=== PATIENT | female | born 1935 | race African-American/Black ===

== ENCOUNTER 2017-09-07 11:16 | Inpatient (IN) | payer MEDICARE, MEDICAID ==
[~2017-09-07] VITALS: Ht 165.1 cm; Wt 83.0 kg
[2017-09-07] MEDS ORDERED: SODIUM CHLORIDE 0.9% 1,000 ML IV ONE (11:47)
[2017-09-07] MEDS ORDERED: NALOXONE HCL 1 MG/ML 2ML VIAL IV ONE (12:00)
[2017-09-07 12:17] LABS: BASOPHILS % 1.8 % (0.0-2.0); EOSINOPHILS % 7.7 % (0.0-5.0); HEMATOCRIT. 37.3 % (36.0-48.0); HEMOGLOBIN. 12.2 g/dL (12.0-16.0); LYMPHOCYTES % 24.7 % (20.0-50.0); MEAN CORPUSCULAR HEMOGLOBIN 29.8 pg (28.0-32.0); MEAN CORPUSCULAR VOLUME 91.3 fL (81.0-99.0); MEAN PLATELET VOLUME 8.2 fl (7.4-10.4); MONOCYTES % 9.7 % (2.0-8.0); NEUTROPHILS % 56.1 % (40.0-76.0); PLATELET 368 x1000/uL (130-400); RED BLOOD CELL COUNT 4.09 mill/uL (4.2-5.4); RED CELL DISTRIBUTION WIDTH 15.1 % (11.6-14.6)
[2017-09-07 12:20] LABS: CHLORIDE 104 mEq/L (98-107)
[2017-09-07 12:21] LABS: INR 1.1
[2017-09-07 12:24] LABS: ETHANOL BLOOD < 10 mg/dL
[2017-09-07 12:28] LABS: CREATINE KINASE 107 IU/L (26-192)
[2017-09-07 12:38] LABS: CARBAMAZEPINE < 0.5 ug/mL (4-12); PHENOBARBITAL < 2.1 ug/mL (15.0-40.0)
[2017-09-07 17:20] VITALS: BP 132/54
[2017-09-07] MEDS ORDERED: CETI-193 PO (20:23)
[2017-09-07] MEDS ORDERED: ASPI-1159 PO (20:23)
[2017-09-07] MEDS ORDERED: DIAZ5TAB4 PO (20:23)
[2017-09-07] MEDS ORDERED: AMLO10TA80 PO (20:23)
[2017-09-07] MEDS ORDERED: NAPR500T7 PO (20:23)
[2017-09-07] MEDS ORDERED: OXYC-523 PO ×2 (20:23)
[2017-09-07] MEDS ORDERED: CANA100T PO (20:23)
[2017-09-07] MEDS ORDERED: LOSA100T14 PO (20:23)
[2017-09-07] MEDS ORDERED: TRAZ-129 PO (20:23)
[2017-09-07] MEDS ORDERED: DIAZ2TAB3 PO (20:23)
[2017-09-07] MEDS ORDERED: DULO60CA63 PO (20:23)
[2017-09-07] MEDS ORDERED: PREG50CA PO (20:23)
[2017-09-07] MEDS ORDERED: ATOR20TA65 PO (20:23)
[2017-09-07] MEDS ORDERED: SITA100T11 PO (20:23)
[2017-09-07] MEDS ORDERED: FAMO40TA7 PO (20:23)
[2017-09-07] MEDS ORDERED: OXYB5TAB PO (20:23)
[2017-09-07] MEDS ORDERED: GINK60CA PO (20:23)
[2017-09-07] MEDS ORDERED: METO25TA6 PO (20:23)
[2017-09-07 20:52] VITALS: BP 109/45
[2017-09-07 21:29] VITALS: BP 109/45
[2017-09-07] MEDS ORDERED: MEDICATION NOT ON FORMULARY EA (Trazodone Hcl 50 MG) PO SCH (22:45)
[2017-09-07] MEDS ORDERED: DEXTROSE 50% WATER 50ML SYRINGE IV PRN (22:45)
[2017-09-07] MEDS ORDERED: LORAZEPAM 0.5MG TABLET PO PRN (23:00)
[2017-09-07] MEDS ORDERED: TRAMADOL 50MG TABLET PO PRN (23:00)
[2017-09-08] VITALS: BP 112/51
[2017-09-08] MEDS: SODIUM CHLORIDE 0.9% 1,000 ML IV SCH ×2 (00:08→12:26)
[2017-09-08] MEDS: TRAZODONE HCL 50MG TABLET PO SCH ×2 (00:08→21:05)
[2017-09-08 04:00] VITALS: BP 116/72
[2017-09-08 06:53] LABS: CLARITY URINE CLEAR (CLEAR); COLOR URINE YELLOW (YELLOW); KETONES URINE NEGATIVE (NEGATIVE); LEUKOCYTE ESTERASE URINE NEGATIVE (NEGATIVE); NITRITE URINE NEGATIVE (NEGATIVE); OCCULT BLOOD URINE NEGATIVE (NEGATIVE); PROTEIN URINE NEGATIVE (NEGATIVE); SPECIFIC GRAVITY URINE 1.017 (1.005-1.030); UROBILINOGEN URINE 0.2 E.U./dL (0.2-1.0)
[2017-09-08 07:13] LABS: *AMPHETAMINES SCREEN URINE NEGATIVE (NEGATIVE); CANNABINOID URINE SCREEN NEGATIVE (NEGATIVE); METHADONE URINE SCREEN NEGATIVE (NEGATIVE); OPIATES URINE SCREEN NEGATIVE (NEGATIVE); PHENCYCLIDINE URINE SCREEN NEGATIVE (NEGATIVE)
[2017-09-08 07:14] LABS: *BARBITURATES SCREEN URINE NEGATIVE (NEGATIVE); *BENZODIAZEPINES SCREEN URINE PRESUMTIVE POSITIVE (NEGATIVE); *COCAINE SCREEN URINE NEGATIVE (NEGATIVE)
[2017-09-08] MEDS: BLOOD SUGAR DIAGNOSTIC STRIP TEST SCH ×4 (07:17→21:00)
[2017-09-08 07:41] LABS: BASOPHILS % 1.5 % (0.0-2.0); HEMATOCRIT. 34.6 % (36.0-48.0); HEMOGLOBIN. 11.5 g/dL (12.0-16.0); LYMPHOCYTES % 37.1 % (20.0-50.0); MEAN CORPUSCULAR HEMOGLOBIN 30.4 pg (28.0-32.0); MEAN CORPUSCULAR VOLUME 91.6 fL (81.0-99.0); MEAN PLATELET VOLUME 8.5 fl (7.4-10.4); MONOCYTES % 10.9 % (2.0-8.0); NEUTROPHILS % 41.5 % (40.0-76.0); PLATELET 324 x1000/uL (130-400); RED BLOOD CELL COUNT 3.77 mill/uL (4.2-5.4); RED CELL DISTRIBUTION WIDTH 15.1 % (11.6-14.6)
[2017-09-08] MEDS: INSULIN LISPRO 100 UNITS/ML SUBCUT SCH ×4 (07:50→21:00)
[2017-09-08 08:55] VITALS: BP 127/89
[2017-09-08] MEDS ORDERED: PREGABALIN 50 MG PO SCH (09:00)
[2017-09-08] MEDS ORDERED: OXYBUTYNIN CHLORIDE 5 MG PO SCH (09:00)
[2017-09-08] MEDS ORDERED: MEDICATION NOT ON FORMULARY EA (Metoprolol Tartrate 25 MG) PO SCH (09:00)
[2017-09-08] MEDS: METOPROLOL TARTRATE 25MG TABLET PO SCH ×2 (09:00→21:00)
[2017-09-08] MEDS ORDERED: FAMOTIDINE 40 MG PO SCH (09:00)
[2017-09-08] MEDS: AMLODIPINE 5MG TABLET PO SCH (09:00)
[2017-09-08] MEDS ORDERED: MEDICATION NOT ON FORMULARY EA (Sitagliptin Phosphate (Januvia) 100 MG) PO SCH (09:00)
[2017-09-08] MEDS: ASPIRIN 81MG TABLET PO SCH (09:22)
[2017-09-08] MEDS: LINAGLIPTIN 5MG TABLET PO SCH (09:22)
[2017-09-08] MEDS: DULOXETINE HCL 60MG DR CAPSULE PO SCH (09:22)
[2017-09-08] MEDS: FAMOTIDINE 20MG TABLET PO SCH (09:22)
[2017-09-08] MEDS: PREGABALIN 50 MG CAPSULE PO SCH ×2 (09:23→18:02)
[2017-09-08] MEDS: OXYBUTYNIN CHLORIDE 5MG TABLET PO SCH (09:23)
[2017-09-08] MEDS: ENOXAPARIN 30MG/0.3ML SYR SUBCUT SCH (09:24)
[2017-09-08 10:15] LABS: CHLORIDE 109 mEq/L (98-107)
[2017-09-08 12:55] VITALS: BP 110/68
[2017-09-08 16:24] VITALS: BP 110/46
[2017-09-08] MEDS: DOCUSATE SODIUM 100MG CAPSULE PO SCH (18:02)
[2017-09-08 20:00] VITALS: BP 106/41
[2017-09-08] MEDS ORDERED: ATORVASTATIN CALCIUM 20MG TABLET PO SCH (21:00)
[2017-09-08] MEDS: LACTULOSE 20G/30ML UDC PO SCH (21:04)
[2017-09-09] VITALS: BP 108/48
[2017-09-09] MEDS: SODIUM CHLORIDE 0.9% 1,000 ML IV SCH ×2 (00:54→13:11)
[2017-09-09 04:00] VITALS: BP 102/40
[2017-09-09] MEDS: BLOOD SUGAR DIAGNOSTIC STRIP TEST SCH ×2 (06:02→12:20)
[2017-09-09] MEDS: INSULIN LISPRO 100 UNITS/ML SUBCUT SCH ×2 (07:50→12:29)
[2017-09-09 08:18] VITALS: BP 152/56
[2017-09-09 09:25] LABS: BASOPHILS % 1.4 % (0.0-2.0); EOSINOPHILS % 7.3 % (0.0-5.0); HEMATOCRIT. 39.4 % (36.0-48.0); HEMOGLOBIN. 12.7 g/dL (12.0-16.0); MEAN CORPUSCULAR HEMOGLOBIN 30.2 pg (28.0-32.0); MEAN CORPUSCULAR VOLUME 93.8 fL (81.0-99.0); MEAN PLATELET VOLUME 8.3 fl (7.4-10.4); MONOCYTES % 11.1 % (2.0-8.0); NEUTROPHILS % 48.2 % (40.0-76.0); PLATELET 333 x1000/uL (130-400); RED CELL DISTRIBUTION WIDTH 15.5 % (11.6-14.6)
[2017-09-09] MEDS: DOCUSATE SODIUM 100MG CAPSULE PO SCH (09:44)
[2017-09-09] MEDS: LINAGLIPTIN 5MG TABLET PO SCH (09:44)
[2017-09-09] MEDS: FAMOTIDINE 20MG TABLET PO SCH (09:44)
[2017-09-09] MEDS: AMLODIPINE 5MG TABLET PO SCH (09:44)
[2017-09-09] MEDS: LACTULOSE 20G/30ML UDC PO SCH (09:45)
[2017-09-09] MEDS: ASPIRIN 81MG TABLET PO SCH (09:45)
[2017-09-09] MEDS: OXYBUTYNIN CHLORIDE 5MG TABLET PO SCH (09:45)
[2017-09-09] MEDS: METOPROLOL TARTRATE 25MG TABLET PO SCH (09:45)
[2017-09-09] MEDS: DULOXETINE HCL 60MG DR CAPSULE PO SCH (09:45)
[2017-09-09] MEDS: PREGABALIN 50 MG CAPSULE PO SCH (09:45)
[2017-09-09] MEDS: ENOXAPARIN 30MG/0.3ML SYR SUBCUT SCH (09:45)
[2017-09-09 10:21] LABS: CHLORIDE 111 mEq/L (98-107)
[2017-09-09 12:09] VITALS: BP 134/65
[2017-09-09 15:16] VITALS: BP 152/56
== END 2017-09-09 16:10 | disposition home or self-care (01) | DRG 682 ==
LOC: ER 11:16 → 6WST 15:38 → ENRESERV 17:33 → 6WST 19:44
PROVIDERS: ADMIT Specialist; ATTEND Specialist
DX: N17.9 Acute kidney failure, unspecified (principal); G93.40 Encephalopathy, unspecified; D64.9 Anemia, unspecified; E11.22 Type 2 diabetes mellitus with diabetic chronic kidney disease; E78.5 Hyperlipidemia, unspecified; E86.0 Dehydration; E86.1 Hypovolemia; G89.4 Chronic pain syndrome; I12.9 Hypertensive chronic kidney disease with stage 1 through stage 4 chronic kidney disease, or unspecified chronic kidney disease; I95.9 Hypotension, unspecified; M48.00 Spinal stenosis, site unspecified; N18.9 Chronic kidney disease, unspecified; Z90.710 Acquired absence of both cervix and uterus; Z88.5 Allergy status to narcotic agent; Z90.49 Acquired absence of other specified parts of digestive tract; Z79.4 Long term (current) use of insulin
CPT/HCPCS: 36415; 70450; 71045; 80048; 80053; 80156; 80165; 80184; 80185; 80305; 81003; 82550; 82962; 83880; 84443; 84484; 85025; 85610; 93005; 96361; 96374; 97162; 99285; G0482; J1650; J1815; J2310; J7030

== ENCOUNTER → 2018-02-08 | Outpatient (CLI) | payer MEDICARE, MEDICAID ==
[~2018-02-08] MED LIST: AMLO10TA80 PO; ASPI-1159 PO; ATOR20TA65 PO; CANA100T PO; CETI-193 PO; DULO60CA63 PO; FAMO40TA7 PO; GINK60CA PO; LOSA100T14 PO; METO25TA6 PO; NAPR500T7 PO; OXYB5TAB PO; OXYC-523 PO; PREG50CA PO; SITA100T11 PO; TRAZ-212 PO
[2018-02-08 12:13] LABS: BASOPHILS % 1.1 % (0.0-2.0); EOSINOPHILS % 4.5 % (0.0-5.0); HEMATOCRIT. 39.3 % (36.0-48.0); HEMOGLOBIN. 12.9 g/dL (12.0-16.0); LYMPHOCYTES % 33.1 % (20.0-50.0); MEAN CORPUSCULAR HEMOGLOBIN 31.3 pg (28.0-32.0); MEAN CORPUSCULAR VOLUME 95.3 fL (81.0-99.0); MEAN PLATELET VOLUME 9.4 fl (7.4-10.4); MONOCYTES % 9.5 % (2.0-8.0); NEUTROPHILS % 51.8 % (40.0-76.0); PLATELET 240 x1000/uL (130-400); RED BLOOD CELL COUNT 4.12 mill/uL (4.2-5.4)
[2018-02-08 12:23] LABS: CHLORIDE 108 mEq/L (98-107)
[2018-02-08 12:37] LABS: T4 FREE 1.14 ng/dL (0.76-1.46)
== END | disposition home or self-care (01) ==
LOC: LAB 11:26
PROVIDERS: ATTEND Internal Medicine Endocrinology, Diabetes & Metabolism
DX: Z13.228 Encounter for screening for other metabolic disorders (principal); E11.65 Type 2 diabetes mellitus with hyperglycemia; E03.9 Hypothyroidism, unspecified; R68.89 Other general symptoms and signs; E11.29 Type 2 diabetes mellitus with other diabetic kidney complication
CPT/HCPCS: 36415; 83036; 84439; 84443

== ENCOUNTER → 2018-02-11 | Outpatient (CLI) | payer MEDICARE, MEDICAID ==
[2018-02-11 10:13] LABS: CLARITY URINE CLEAR (CLEAR); COLOR URINE YELLOW (YELLOW); KETONES URINE NEGATIVE (NEGATIVE); LEUKOCYTE ESTERASE URINE NEGATIVE (NEGATIVE); NITRITE URINE NEGATIVE (NEGATIVE); OCCULT BLOOD URINE NEGATIVE (NEGATIVE); PH URINE 5.5 (4.5-8.0); PROTEIN URINE NEGATIVE (NEGATIVE); SPECIFIC GRAVITY URINE 1.017 (1.005-1.030); UROBILINOGEN URINE 0.2 E.U./dL (0.2-1.0)
== END | disposition home or self-care (01) ==
LOC: LAB 09:38
PROVIDERS: ATTEND Internal Medicine Endocrinology, Diabetes & Metabolism
DX: Z13.228 Encounter for screening for other metabolic disorders (principal); E11.65 Type 2 diabetes mellitus with hyperglycemia; E11.29 Type 2 diabetes mellitus with other diabetic kidney complication; E03.9 Hypothyroidism, unspecified; R68.89 Other general symptoms and signs

== ENCOUNTER → 2018-06-12 | Outpatient (CLI) | payer MEDICARE, MEDICAID | END | disposition home or self-care (01) | LOC: LAB 13:51 | PROVIDERS: ATTEND Internal Medicine Endocrinology, Diabetes & Metabolism | DX: E11.40 Type 2 diabetes mellitus with diabetic neuropathy, unspecified (principal) | CPT/HCPCS: 83036 ==

== ENCOUNTER → 2018-10-22 | Outpatient (CLI) | payer MEDICARE, MEDICAID ==
[~2018-10-22] MED LIST changes: -ASPI-1159 PO; +ASPI-1393 PO; +BARIUM SULFATE 450ML ORAL SUSP ONE; -DULO60CA63 PO; +DULO60CA64 PO; -LOSA100T14 PO; +LOSA100T32 PO; -TRAZ-212 PO; +TRAZ-251 PO
== END | disposition home or self-care (01) ==
LOC: CT 09:04
PROVIDERS: ATTEND Internal Medicine Gastroenterology
DX: K57.30 Diverticulosis of large intestine without perforation or abscess without bleeding (principal); K59.00 Constipation, unspecified; I70.1 Atherosclerosis of renal artery; E03.9 Hypothyroidism, unspecified; I12.9 Hypertensive chronic kidney disease with stage 1 through stage 4 chronic kidney disease, or unspecified chronic kidney disease; E11.22 Type 2 diabetes mellitus with diabetic chronic kidney disease; N18.9 Chronic kidney disease, unspecified
CPT/HCPCS: 74176

== ENCOUNTER 2019-08-01 21:33 | Inpatient (IN) | payer MEDICARE, MEDICAID ==
[~2019-08-01] VITALS: Ht 175.3 cm; Wt 74.4 kg
[~2019-08-01 21:33] MED LIST changes: -ASPI-1393 PO; +ASPI-1497 PO; -BARIUM SULFATE 450ML ORAL SUSP ONE
[2019-08-01 22:47] LABS: BASOPHILS % 0.8 % (0.0-2.0); EOSINOPHILS % 9.1 % (0.0-5.0); HEMATOCRIT. 32.8 % (36.0-48.0); HEMOGLOBIN. 11.2 g/dL (12.0-16.0); MEAN CORPUSCULAR HEMOGLOBIN 32.5 pg (28.0-32.0); MEAN CORPUSCULAR VOLUME 95.4 fL (81.0-99.0); MEAN PLATELET VOLUME 9.4 fl (7.4-10.4); MONOCYTES % 12.7 % (2.0-8.0); NEUTROPHILS % 43.4 % (40.0-76.0); PLATELET 216 x1000/uL (130-400); RED BLOOD CELL COUNT 3.44 mill/uL (4.2-5.4); RED CELL DISTRIBUTION WIDTH 14.3 % (11.6-14.6)
[2019-08-01 22:50] LABS: CHLORIDE 105 mEq/L (98-107)
[2019-08-02 00:54] LABS: CLARITY URINE CLEAR (CLEAR); COLOR URINE YELLOW (YELLOW); KETONES URINE TRACE (NEGATIVE); LEUKOCYTE ESTERASE URINE 2+ (NEGATIVE); NITRITE URINE NEGATIVE (NEGATIVE); OCCULT BLOOD URINE NEGATIVE (NEGATIVE); PROTEIN URINE NEGATIVE (NEGATIVE); SPECIFIC GRAVITY URINE 1.019 (1.005-1.030); UROBILINOGEN URINE 0.2 E.U./dL (0.2-1.0)
[2019-08-02] MEDS ORDERED: CEFTRIAXONE 1 G PREMIX 50 ML IV SCH (02:45)
[2019-08-02] MEDS ORDERED: SODIUM CHLORIDE 0.9% 1,000 ML IV ONE (02:45)
[2019-08-02] MEDS ORDERED: ACETAMINOPHEN 325MG TABLET PO PRN (10:45)
[2019-08-02] MEDS: SODIUM CHLORIDE 0.9% 1,000 ML IV SCH (10:45)
[2019-08-02] MEDS ORDERED: DIATR MEGLU/DIATRIZOATE SOLN 30ML PO SCH (10:45)
[2019-08-02] MEDS ORDERED: ONDANSETRON HCL 4MG/2ML INJ IV PRN (10:45)
[2019-08-02] MEDS ORDERED: DIATR MEGLU/DIATRIZOATE SOLN 30ML ONE (11:14)
[2019-08-02] MEDS ORDERED: AMLODIPINE 5MG TABLET PO NR (13:45)
[2019-08-02] MEDS ORDERED: CLONIDINE 0.1MG TABLET PO PRN (13:45)
[2019-08-02 16:00] VITALS: BP 156/64
[2019-08-02 16:54] VITALS: BP 156/63
[2019-08-02] MEDS ORDERED: METF-414 MT (17:25)
[2019-08-02] MEDS ORDERED: CETIRIZINE 10MG TABLET PO PRN (17:30)
[2019-08-02] MEDS ORDERED: METFORMIN HCL 500MG TABLET PO SCH (17:50)
[2019-08-02] MEDS ORDERED: DEXTROSE 50% WATER 50ML SYRINGE IV PRN (18:30)
[2019-08-02] MEDS: OXYCODONE HCL/ACETAMINOPHEN 5/325MG TABLET PO PRN (18:43)
[2019-08-02 20:00] VITALS: BP 146/51
[2019-08-02] MEDS: INSULIN LISPRO (LOW DOSE) 100 UNITS/ML SUBCUT SCH (21:00)
[2019-08-02] MEDS: BLOOD SUGAR DIAGNOSTIC STRIP TEST SCH (21:41)
[2019-08-02] MEDS: TRAZODONE HCL 50MG TABLET PO SCH (22:03)
[2019-08-02] MEDS: ATORVASTATIN CALCIUM 20MG TABLET PO SCH (22:03)
[2019-08-02] MEDS: METOPROLOL TARTRATE 25MG TABLET PO SCH (22:04)
[2019-08-02] MEDS: PREGABALIN 25MG CAPSULE PO SCH (22:04)
[2019-08-02] MEDS: FAMOTIDINE 20MG TABLET PO SCH (22:05)
[2019-08-02] MEDS: AMLODIPINE 5MG TABLET PO SCH (22:05)
[2019-08-03] VITALS: BP 141/54
[2019-08-03] MEDS ORDERED: CEFTRIAXONE 1 G PREMIX 50 ML IV SCH (03:00)
[2019-08-03 04:00] VITALS: BP 126/73
[2019-08-03] MEDS: CEFTRIAXONE 1 G PREMIX 50 ML IV SCH (04:34)
[2019-08-03] MEDS: INSULIN LISPRO (LOW DOSE) 100 UNITS/ML SUBCUT SCH ×4 (06:32→21:00)
[2019-08-03] MEDS: BLOOD SUGAR DIAGNOSTIC STRIP TEST SCH ×4 (06:32→21:56)
[2019-08-03 07:41] LABS: BASOPHILS % 0.3 % (0.0-2.0); EOSINOPHILS % 8.7 % (0.0-5.0); HEMATOCRIT. 35.7 % (36.0-48.0); HEMOGLOBIN. 11.9 g/dL (12.0-16.0); LYMPHOCYTES % 28.4 % (20.0-50.0); MEAN CORPUSCULAR HEMOGLOBIN 31.9 pg (28.0-32.0); MEAN CORPUSCULAR VOLUME 95.9 fL (81.0-99.0); MONOCYTES % 12.2 % (2.0-8.0); NEUTROPHILS % 50.4 % (40.0-76.0); RED BLOOD CELL COUNT 3.72 mill/uL (4.2-5.4); RED CELL DISTRIBUTION WIDTH 14.6 % (11.6-14.6)
[2019-08-03 08:00] VITALS: BP 173/62
[2019-08-03] MEDS: METOPROLOL TARTRATE 25MG TABLET PO SCH ×2 (09:00→21:55)
[2019-08-03] MEDS: AMLODIPINE 5MG TABLET PO SCH ×2 (09:00→21:55)
[2019-08-03] MEDS: DULOXETINE HCL 60MG DR CAPSULE PO SCH (09:08)
[2019-08-03] MEDS: ASPIRIN 81MG TABLET PO SCH (09:08)
[2019-08-03] MEDS: PREGABALIN 25MG CAPSULE PO SCH ×2 (09:08→21:55)
[2019-08-03 12:00] VITALS: BP 151/51
[2019-08-03] MEDS: OXYCODONE HCL/ACETAMINOPHEN 5/325MG TABLET PO PRN (12:42)
[2019-08-03 13:44] LABS: PLATELET 138 x1000/uL (130-400)
[2019-08-03 16:00] VITALS: BP 141/67
[2019-08-03] MEDS: SODIUM CHLORIDE 0.9% 1,000 ML IV SCH (17:19)
[2019-08-03 20:00] VITALS: BP 124/54
[2019-08-03] MEDS ORDERED: SODIUM POLYSTYRENE SULFONATE 15 G/60 ML BOT PO NR (21:00)
[2019-08-03] MEDS: TRAZODONE HCL 50MG TABLET PO SCH (21:54)
[2019-08-03] MEDS: ATORVASTATIN CALCIUM 20MG TABLET PO SCH (21:54)
[2019-08-03] MEDS: FAMOTIDINE 20MG TABLET PO SCH (21:55)
[2019-08-04] VITALS: BP 166/69
[2019-08-04 04:00] VITALS: BP 148/55
[2019-08-04] MEDS: CEFTRIAXONE 1 G PREMIX 50 ML IV SCH (04:56)
[2019-08-04] MEDS: INSULIN LISPRO (LOW DOSE) 100 UNITS/ML SUBCUT SCH ×2 (06:36→12:50)
[2019-08-04] MEDS: BLOOD SUGAR DIAGNOSTIC STRIP TEST SCH ×2 (06:36→11:38)
[2019-08-04 08:00] VITALS: BP 156/50
[2019-08-04 08:07] LABS: BASOPHILS % 0.9 % (0.0-2.0); EOSINOPHILS % 6.8 % (0.0-5.0); HEMATOCRIT. 36.6 % (36.0-48.0); HEMOGLOBIN. 12.3 g/dL (12.0-16.0); LYMPHOCYTES % 34.3 % (20.0-50.0); MEAN CORPUSCULAR HEMOGLOBIN 32.5 pg (28.0-32.0); MEAN CORPUSCULAR VOLUME 96.7 fL (81.0-99.0); MEAN PLATELET VOLUME 9.5 fl (7.4-10.4); MONOCYTES % 11.3 % (2.0-8.0); NEUTROPHILS % 46.7 % (40.0-76.0); PLATELET 126 x1000/uL (130-400); RED BLOOD CELL COUNT 3.79 mill/uL (4.2-5.4); RED CELL DISTRIBUTION WIDTH 14.7 % (11.6-14.6)
[2019-08-04 08:21] LABS: CHLORIDE 111 mEq/L (98-107)
[2019-08-04] MEDS: METOPROLOL TARTRATE 25MG TABLET PO SCH (09:00)
[2019-08-04] MEDS: PREGABALIN 25MG CAPSULE PO SCH (09:24)
[2019-08-04] MEDS: DULOXETINE HCL 60MG DR CAPSULE PO SCH (09:24)
[2019-08-04] MEDS: ASPIRIN 81MG TABLET PO SCH (09:25)
[2019-08-04] MEDS: AMLODIPINE 5MG TABLET PO SCH (09:25)
[2019-08-04 12:00] VITALS: BP 160/53
[2019-08-04 14:26] VITALS: BP 160/53
== END 2019-08-04 15:26 | disposition home or self-care (01) | DRG 690 ==
LOC: ER 21:33 → UNDOADMIN 08-02 01:47 → 6EST 08-02 01:47 → ENRESERV 08-02 07:54 → 6EST 08-02 16:28
PROVIDERS: ADMIT Family Medicine Adult Medicine; ATTEND Family Medicine Adult Medicine
DX: N12 Tubulo-interstitial nephritis, not specified as acute or chronic (principal); N17.0 Acute kidney failure with tubular necrosis; D64.9 Anemia, unspecified; I10 Essential (primary) hypertension; E78.5 Hyperlipidemia, unspecified; E11.9 Type 2 diabetes mellitus without complications; Z90.49 Acquired absence of other specified parts of digestive tract; Z90.710 Acquired absence of both cervix and uterus; Z88.5 Allergy status to narcotic agent; Z79.82 Long term (current) use of aspirin; Z79.899 Other long term (current) drug therapy
CPT/HCPCS: 36415; 74176; 80048; 80053; 81003; 82962; 85025; 93970; 97162; 99285; J0696; Q9963

== ENCOUNTER 2022-05-27 09:35 | Inpatient (IN) | payer MEDICARE, MEDICAID ==
[~2022-05-27] VITALS: Ht 172.7 cm; Wt 80.3 kg
[~2022-05-27 09:35] MED LIST changes: +METF-414 MT; -OXYC-523 PO; +OXYC1TAB5 PO
[2022-05-27] MEDS ORDERED: SODIUM CHLORIDE 0.9% 1,000 ML IV ONE (10:15)
[2022-05-27 11:28] LABS: BASOPHILS % 0.2 % (0.0-2.0); HEMATOCRIT. 38.8 % (36.0-48.0); HEMOGLOBIN. 12.9 g/dL (12.0-16.0); LYMPHOCYTES % 13.5 % (20.0-50.0); MEAN CORPUSCULAR HEMOGLOBIN 31.3 pg (28.0-32.0); MEAN PLATELET VOLUME 8.9 fl (7.4-10.4); MONOCYTES % 3.9 % (2.0-8.0); NEUTROPHILS % 82.4 % (40.0-76.0); PLATELET 341 x1000/uL (130-400); RED BLOOD CELL COUNT 4.13 mill/uL (4.2-5.4); RED CELL DISTRIBUTION WIDTH 16.3 % (11.6-14.6)
[2022-05-27 12:04] LABS: CLARITY URINE CLOUDY (CLEAR); COLOR URINE DARK YELLOW (YELLOW); SPECIFIC GRAVITY URINE 1.017 (1.005-1.030)
[2022-05-27 12:05] LABS: KETONES URINE TRACE (NEGATIVE); NITRITE URINE NEGATIVE (NEGATIVE); OCCULT BLOOD URINE 3+ (NEGATIVE); PROTEIN URINE 1+ (NEGATIVE)
[2022-05-27 12:06] LABS: LEUKOCYTE ESTERASE URINE 2+ (NEGATIVE); UROBILINOGEN URINE 1 E.U./dL (0.2-1.0)
[2022-05-27 12:08] LABS: CHLORIDE 101 mEq/L (98-107)
[2022-05-27 12:15] LABS: INR 1.1; PROTHROMBIN TIME 11.6 sec (9.6-11.0)
[2022-05-27] MEDS ORDERED: LEVOFLOXACIN 750MG PREMIX 150 ML IV NR (14:15)
[2022-05-27 20:00] VITALS: BP_SYST 140; BP_SYST 142; BP_DIAS 62; BP_DIAS 95
[2022-05-27] MEDS ORDERED: ONDANSETRON HCL 4MG/2ML INJ IV PRN (20:00)
[2022-05-27] MEDS ORDERED: HYDRALAZINE 20MG/ML VIAL IV PRN (20:00)
[2022-05-27] MEDS ORDERED: HYDRALAZINE 10 MG in SODIUM CHLORIDE 0.9% 49.5 ML IV PRN (20:00)
[2022-05-27] MEDS ORDERED: DEXTROSE 50% WATER 50ML SYRINGE IV PRN (20:00)
[2022-05-27] MEDS ORDERED: NALOXONE HCL 0.4MG/ML VIAL IV PRN (20:15)
[2022-05-27] MEDS: INSULIN LISPRO 100 UNITS/ML SUBCUT SCH (21:00)
[2022-05-27] MEDS: SODIUM CHLORIDE 0.45% 1,000 ML IV SCH (21:06)
[2022-05-27] MEDS: CEFTRIAXONE 1GM PREMIX 50 ML IV SCH (21:06)
[2022-05-27] MEDS: BLOOD SUGAR DIAGNOSTIC STRIP TEST SCH (21:07)
[2022-05-27] MEDS: METRONIDAZOLE 500 MG PREMIX 100 ML IV SCH (21:59)
[2022-05-28] VITALS: BP 139/70
[2022-05-28 04:00] VITALS: BP 132/51
[2022-05-28] MEDS: METRONIDAZOLE 500 MG PREMIX 100 ML IV SCH ×3 (05:32→22:27)
[2022-05-28] MEDS: BLOOD SUGAR DIAGNOSTIC STRIP TEST SCH ×4 (06:43→21:23)
[2022-05-28] MEDS: INSULIN LISPRO 100 UNITS/ML SUBCUT SCH ×3 (07:50→21:00)
[2022-05-28 08:00] VITALS: BP 141/43
[2022-05-28 08:02] LABS: CHLORIDE 108 mEq/L (98-107)
[2022-05-28 08:11] LABS: HDL CHOLESTEROL 58 mg/dL (40-59); LDL CHOLESTEROL 37 mg/dL (5-100)
[2022-05-28] MEDS: SODIUM CHLORIDE 0.45% 1,000 ML IV SCH ×2 (09:29→21:11)
[2022-05-28] MEDS: HYDROCODONE/ACETAMINOPHEN 5/325MG TABLET PO PRN ×2 (09:37→21:07)
[2022-05-28 10:00] LABS: HEMATOCRIT. 33.6 % (36.0-48.0); MEAN CORPUSCULAR HEMOGLOBIN 31.1 pg (28.0-32.0); MEAN CORPUSCULAR VOLUME 95.1 fL (81.0-99.0); MEAN PLATELET VOLUME 9.1 fl (7.4-10.4); PLATELET 235 x1000/uL (130-400); RED BLOOD CELL COUNT 3.53 mill/uL (4.2-5.4); RED CELL DISTRIBUTION WIDTH 14.7 % (11.6-14.6)
[2022-05-28 10:40] LABS: PLATELET ESTIMATE NORMAL
[2022-05-28 12:00] VITALS: BP 134/41
[2022-05-28 16:00] VITALS: BP 126/38
[2022-05-28] MEDS: CEFTRIAXONE 1GM PREMIX 50 ML IV SCH (21:08)
[2022-05-29] VITALS: BP 150/47
[2022-05-29] MEDS: METRONIDAZOLE 500 MG PREMIX 100 ML IV SCH ×3 (05:15→18:32)
[2022-05-29] MEDS: BLOOD SUGAR DIAGNOSTIC STRIP TEST SCH ×4 (06:29→21:08)
[2022-05-29 07:14] LABS: BASOPHILS % 0.5 % (0.0-2.0); EOSINOPHILS % 4.6 % (0.0-5.0); HEMATOCRIT. 30.9 % (36.0-48.0); HEMOGLOBIN. 10.3 g/dL (12.0-16.0); LYMPHOCYTES % 9.7 % (20.0-50.0); MEAN CORPUSCULAR HEMOGLOBIN 31.4 pg (28.0-32.0); MEAN CORPUSCULAR VOLUME 94.1 fL (81.0-99.0); MONOCYTES % 8.6 % (2.0-8.0); NEUTROPHILS % 76.6 % (40.0-76.0); PLATELET 215 x1000/uL (130-400); RED BLOOD CELL COUNT 3.29 mill/uL (4.2-5.4); RED CELL DISTRIBUTION WIDTH 14.3 % (11.6-14.6)
[2022-05-29 07:21] LABS: PHOSPHORUS 1.8 mg/dL (2.5-4.9)
[2022-05-29] MEDS: INSULIN LISPRO 100 UNITS/ML SUBCUT SCH ×4 (07:26→21:00)
[2022-05-29 08:00] VITALS: BP_SYST 104; BP_SYST 143; BP_DIAS 42; BP_DIAS 68
[2022-05-29] MEDS: HYDROCODONE/ACETAMINOPHEN 5/325MG TABLET PO PRN (08:47)
[2022-05-29] MEDS: SODIUM CHLORIDE 0.45% 1,000 ML IV SCH (11:34)
[2022-05-29 12:00] VITALS: BP 148/49
[2022-05-29 16:00] VITALS: BP 170/57
[2022-05-29] MEDS: AMLODIPINE 10MG TABLET PO SCH (18:51)
[2022-05-29 20:00] VITALS: BP 177/54
[2022-05-29] MEDS ORDERED: GUAIFENESIN 200MG/10ML SUGAR FREE UDC PO PRN (20:45)
[2022-05-29] MEDS: CEFTRIAXONE 1GM PREMIX 50 ML IV SCH (21:00)
[2022-05-29] MEDS: BENAZEPRIL 10MG TABLET PO SCH (21:22)
[2022-05-29] MEDS: GUAIFENESIN 200MG/10ML SUGAR FREE UDC PO PRN (21:23)
[2022-05-29] MEDS ORDERED: METRONIDAZOLE 500MG TABLET PO SCH ×2 (22:00)
[2022-05-29] MEDS ORDERED: LEVOFLOXACIN 500MG TABLET PO NR (23:30)
[2022-05-30] VITALS: BP 148/55
[2022-05-30] MEDS: SODIUM CHLORIDE 0.45% 1,000 ML IV SCH (01:20)
[2022-05-30 04:00] VITALS: BP 156/53
[2022-05-30] MEDS: GUAIFENESIN 200MG/10ML SUGAR FREE UDC PO PRN (05:20)
[2022-05-30] MEDS ORDERED: METRONIDAZOLE 500MG TABLET PO SCH (06:00)
[2022-05-30 07:08] LABS: BASOPHILS % 0.7 % (0.0-2.0); EOSINOPHILS % 6.4 % (0.0-5.0); HEMATOCRIT. 30.6 % (36.0-48.0); HEMOGLOBIN. 10.6 g/dL (12.0-16.0); LYMPHOCYTES % 15.4 % (20.0-50.0); MEAN CORPUSCULAR HEMOGLOBIN 32.4 pg (28.0-32.0); MEAN CORPUSCULAR VOLUME 93.4 fL (81.0-99.0); MONOCYTES % 9.9 % (2.0-8.0); NEUTROPHILS % 67.6 % (40.0-76.0); RED BLOOD CELL COUNT 3.28 mill/uL (4.2-5.4); RED CELL DISTRIBUTION WIDTH 14.2 % (11.6-14.6)
[2022-05-30] MEDS: BLOOD SUGAR DIAGNOSTIC STRIP TEST SCH (07:20)
[2022-05-30] MEDS: INSULIN LISPRO 100 UNITS/ML SUBCUT SCH (07:50)
[2022-05-30] MEDS ORDERED: LEVO-65 MT (07:52)
[2022-05-30] MEDS ORDERED: METR375C2 PO (07:52)
[2022-05-30 08:00] VITALS: BP 161/59
[2022-05-30 08:38] LABS: CHLORIDE 105 mEq/L (98-107)
[2022-05-30] MEDS: AMLODIPINE 10MG TABLET PO SCH (09:22)
[2022-05-30] MEDS: BENAZEPRIL 10MG TABLET PO SCH (09:22)
[2022-05-30 12:00] VITALS: BP 153/62
[2022-05-30] MEDS ORDERED: LEVOFLOXACIN 250MG TABLET PO SCH (21:00)
== END 2022-05-30 13:55 | disposition home health service (06) | DRG 871 ==
LOC: ER 09:54 → 6EST 19:12
PROVIDERS: ADMIT Family Medicine; ATTEND Family Medicine
DX: A41.9 Sepsis, unspecified organism (principal); N17.0 Acute kidney failure with tubular necrosis; K57.32 Diverticulitis of large intestine without perforation or abscess without bleeding; E11.9 Type 2 diabetes mellitus without complications; D64.9 Anemia, unspecified; I10 Essential (primary) hypertension; E78.5 Hyperlipidemia, unspecified; F32.A Depression, unspecified; K52.9 Noninfective gastroenteritis and colitis, unspecified; Z87.440 Personal history of urinary (tract) infections; Z90.710 Acquired absence of both cervix and uterus; Z90.49 Acquired absence of other specified parts of digestive tract; Z88.5 Allergy status to narcotic agent; Z90.6 Acquired absence of other parts of urinary tract
CPT/HCPCS: 36415; 71045; 74176; 80048; 80053; 80061; 81003; 82962; 83036; 83735; 84100; 85025; 85044; 85384; 86850; 86900; 93005; 97162; 99285; C1893; J0696; J1815; J1956; J3490; J7030